=== PATIENT | female | born 1965 | race Caucasian/White ===

== ENCOUNTER 2021-05-26 15:19 | Emergency (ER) | payer MEDICAID ==
[~2021-05-26] VITALS: Ht 170.2 cm; Wt 70.3 kg
[2021-05-26 15:25] VITALS: BP 148/63
--- NOTE | 2021-05-26 16:12 | NUR ---
56 Y/O FEMALE W/C ASSISTED BIB SELF FOR C/O LEFT FOOT PAIN 8/10 S/P FALL X1HR. PATIENT WAS PICKING UP HER SON FROM THE BUS STOP TRIPPING OVER DOOR LEDGE AND LANDING ON BILATERAL KNEES. ABRASIONS IN BILATERAL KNEES ARE NOTED. THERE IS NO ACTIVE BLEEDING AT THIS TIME. PT.DENIES HEAD INJURY, DENIES LOC, DENIES FEVER/CHILLS, DENIES N/V. PMH: HTN NKA
[2021-05-26] MEDS: KETOROLAC 30 MG/ML VIAL IM ONE (16:23)
[2021-05-26] MEDS: BACITRACIN OINT 500 UNITS/GM PKT TP ONE (16:23)
[2021-05-26] MEDS ORDERED: NAPR-54 PO (17:07)
[2021-05-26 17:08] VITALS: BP 131/72
--- NOTE | 2021-05-26 17:21 | NUR ---
PT PLACED IN LEFT ORTHO BOOT CMS WNL BEFORE AND AFTER. PT ALSO GIVEN CRUTCHE THAT WERE ADJUSTED TO PT'S SIZE AND HIEGHT, PT GIVEN ONE ON ONE INSTRUCTONS ON HOW TO USE THEM AND SHOWED PROPER DEMENSTRATION ON HOW TO USE THEM. PT HAD NO FURTHER QUESTIONS. KATIED NOTIFIED.
--- NOTE | 2021-05-26 17:38 | NUR ---
Patient discharged with v/s stable. Written and verbal after care instructions given and explained. Patient alert, oriented and verbalized understanding of instructions. Ambulatory with steady gait. All questions addressed prior to discharge. ID band removed. Patient advised to follow up with PMD. Rx of NAPROXEN was given. Patient educated on indication of medication including possible reaction and side effects. Opportunity to ask questions provided and answered.
== END 2021-05-26 17:38 | disposition home or self-care (01) ==
LOC: MED 15:19
DX: S82.52XA Displaced fracture of medial malleolus of left tibia, initial encounter for closed fracture (principal); S82.832A Other fracture of upper and lower end of left fibula, initial encounter for closed fracture; I10 Essential (primary) hypertension; Z79.899 Other long term (current) drug therapy; W19.XXXA Unspecified fall, initial encounter; Y93.89 Activity, other specified; Y92.89 Other specified places as the place of occurrence of the external cause; Y99.8 Other external cause status
CPT/HCPCS: 73610; 96372; 99283; J1885